=== PATIENT | female | born 1960 ===

== ENCOUNTER 2019-12-04 08:51 | Outpatient (CLI) | payer BC ==
--- NOTE | 2019-12-04 10:01 | ULT ---
Ultrasound thyroid: 12/04/2019 HISTORY: 59-year-old female with multinodular goiter. COMPARISON: 12/24/2017 FINDINGS: Again noted is the diffuse heterogeneity of the echotexture. Again noted are the multiple bilateral thyroid nodules as previously described. Some differences in measurements are probably entirely due to technical factors. For example, previously mentioned 0.6 x 0.6 x 0.6 cm right posterior mid pole solid nodule is current ly measured as1.2 x 0.9 x 0.7 cm. The difference appears to be due to placement of cursors on sagittal images, with differences in judgment of what is the caudal boundary of this nodule. When com pared to older study of 12/18/2016, there has probably been no significant interval change. As another example, a 1.2 x 0.6 x 1.1 cm solid nodule in the posterior aspect of the left midpole has been measured today. This was not recognized as a nodule on previous ultrasounds, but in retrospect, was present on the 2016 and 2018 ultrasounds, and has not significantly changed in size. Uncertain whether this is an actual nodule or part of the heterogeneous echotexture. Overall, there has probably been no interval change. IMPRESSION: 1.) Multinodular goiter. 2) no definitive evidence of interval change
== END 2019-12-04 08:52 | disposition home or self-care (01) ==
LOC: SCSULT 08:51
PROVIDERS: ATTEND Otolaryngology Plastic Surgery within the Head & Neck
DX: E04.2 Nontoxic multinodular goiter (principal)
CPT/HCPCS: 76536